=== PATIENT | female | born 2000 | race African-American/Black ===

== ENCOUNTER 2024-12-03 05:46 | Emergency (ER) | payer SELFPAY ==
[2024-12-03 05:47] VITALS: BMI 43.2
[2024-12-03 05:56] VITALS: BP 133/92; PULSE 87; RESP 19; TEMP 36.6; O2SAT 97
--- NOTE | 2024-12-03 06:27 | PD.EDEAR ---
ED Ear RME/HPI General Chief complaint: Ear Stated complaint: RIGHT EAR PLUGGED UP Time Seen by Provider: 12/03/24 06:19 Arrival date/time: 12/03/24 05:46 RME / HPI RME / HPI Narrative: DR. PERAZA MAIN ED EVALUATION: This section includes all my notes and documentations, including HPI, PE, and ED course.? Layo Peraza MD HPI: 24 year old female with no past medical history presents to the Emergency Department accompanied by with complaint of right ear pain. Associated symptoms include congestion for a week. No known allergies. No fevers or chills. No other complaints reported. ROS: All negative except as documented in HPI. Physical Exam: General:? Alert and oriented.? Severe congestion noted. Eyes:? Conjunctivae and lids clear. ENT:? Congested. Right TM is red and bulging with loss of landmarks. Pharynx normal. Neck:? Supple. Heart:? RRR. Lungs:? No respiratory distress.? Good air movement.? No rhonchi, wheezing, rales.? Skin:? Warm and dry.? Neuro:? Alert and oriented X 3.? At this point, diagnoses include otitis media and sinusitis. Treatment here included Augmentin. Recommend outpatient management. Based on my best medical judgment, made decision no further evaluation or treatment indicated at this time.? Patient understands and agrees to the discharge instructions customized and printed, see below. Discharge Instructions from Dr. Peraza printed for you: 1. Take Augmentin to kill the germs causing your infections. 2. Prednisone will help decrease inflammation and help the symptoms. 3. See a private doctor on 12/09/2024 if not completely better. 4. Seek immediate medical care with worsening or with any concerns. Layo Peraza MD Related Data Previous Rx's ?Medication ?Instructions ?Recorded amoxicillin 875 mg-potassium 1 tab PO BID #20 tabs 12/03/24 clavulanate 125 mg tablet prednisone 50 mg tablet 50 mg PO QDAY #3 tabs 12/03/24 Allergies Allergy/AdvReac Type Severity Reaction Status Date / Time No Known Allergies Allergy Verified 12/03/24 05:49 Course Quality Measures none Orders Category Date Time Status Amoxicillin/Pot Clav 875 [Augmentin 875] Med 12/03/24 06:41 Discontinued 1 tab PO X1 ONE Vital Signs Vital signs: Vital Signs Temperature 97.8 F 12/03/24 05:56 Pulse Rate 87 12/03/24 05:56 Respiratory Rate 19 12/03/24 05:56 Blood Pressure 133/92 H 12/03/24 05:56 Pulse Oximetry (%) 97 12/03/24 05:56 Oxygen Delivery Method Room Air 12/03/24 05:56 Ear MDM Narrative MDM Narrative:: IJodie am scribing for and in the presence of Dr. Peraza. Patient data External records reviewed:: None (no previous visits) Clinical information provided by:: patient and spouse Social determinants that could affect healthcare access:: none Patient has the following chronic illnesses:: Denies any PMHx, surgeries, daily medications, or known allergies. How is presenting disease/condition affected by chronic disease/condition?: no chronic disease Evaluation data The following diagnostics were reviewed and interpreted by me:: other (specify) (none) Lab and/or radiology exams considered but not ordered:: none Interpretation Summary: No diagnostics ordered. Medications / Prescriptions Medications or Prescriptions considered but not ordered:: none Medication administrations:: Medication Administration History Discontinued Medications Amoxicillin/Clavulanate Potassium (Amoxicillin/Pot Clav 875 Tablet) 1 tab PO X1 ONE Stop: 12/03/24 06:42 Last Admin: 12/03/24 06:44 Dose: 1 tab Documented By: DESIREE Scott Consultations Consultation(s) initiated? (list below): No Diagnosis Ear Differential Diagnosis: otitis externa, otitis media, foreign body in ear, ruptured TM, cerumen impaction and other (Sinusitis, URI) Most likely diagnosis given after review of the tests above:: Otitis media and sinusitis. Admission Indicated Admission indicated?: not indicated Explain why admission is indicated or not indicated:: With no serious condition, there was no indication for admission. Admission Request Was there a request for admission?: No Disposition Plan Disposition Plan: Discharge Discharge Attestation Discharge Attestation: The patient and all family members were given an opportunity to ask questions and understood the discharge instructions. Discharge instructions specifically effects, indications for sooner follow up or return to the emergency department, and the expected course of current diagnosis. Patient condition: Stable Discharge Plan Plan Patient Disposition: HOME (Self Care) Prescriptions/Referrals Prescriptions/Med Rec: New prednisone 50 mg tablet 50 mg PO QDAY Qty: 3 0RF amoxicillin-pot clavulanate 875-125 mg tablet 1 tab PO BID Qty: 20 0RF Problem List Clinical Impression: Otitis media, Sinusitis Patient/Caregiver Discharge Instructions Discharge Activity: activity as tolerated Education Materials: ED Otitis Media Antibiotic ..., ED Sinusitis (Antibiotic Treatment) Additional Instructions: Discharge Instructions from Dr. Peraza printed for you: 1. Take Augmentin to kill the germs causing your infections. 2. Prednisone will help decrease inflammation and help the symptoms. 3. See a private doctor on 12/09/2024 if not completely better. 4. Seek immediate medical care with worsening or with any concerns. Print Language: Setswana Stand Alone Forms: Norma Award Info., Patient Portal Info Letter
[2024-12-03] MEDS: AMOXICILLIN/POT CLAV 875 TABLET 1 TAB PO (06:44)
== END 2024-12-03 06:47 | disposition home or self-care (01) ==
LOC: SERX 06:51
PROVIDERS: Emergency Provider Emergency Medicine
DX: H66.91 Otitis media, unspecified, right ear (principal); J32.9 Chronic sinusitis, unspecified
CPT/HCPCS: 99282; A9270

== ENCOUNTER 2025-03-16 23:11 | Emergency (ER) | payer MEDICAID, SELFPAY ==
[2025-03-16] VITALS (15 sets, daily range): BP systolic 130–147; BP diastolic 69–94; PULSE 81–107; RESP 18–99; TEMP 36.8–37; O2SAT 96–100; BMI 47.6; BMI 47.5
--- NOTE | 2025-03-16 21:35 | XR_ITS ---
Examination: Complete OB ultrasound greater than 14 weeks Date and time of exam: March 16, 2025, 2143 hours INDICATIONS: Patient fell this afternoon with injury to the pelvis Findings: Viable intrauterine single fetus with single amniotic sac presentation cephalic Cardiac motion 140 bpm Placenta posterior grade 2 Umbilical cord insertion 3 vessels seen Amniotic fluid index adequate spine maternal left Cervix 4.2 cm Right ovary obscured by bowel gas Left ovary 3.1 cm arterial flow Composite estimated gestational age based on BPD, head circumference, abdominal circumference, femur length is 21 weeks 0 days Estimated weight 423 g. Survey of intracranial anatomy, spinal anatomy, abdominal anatomy, four-chamber heart performed with no abnormalities identified. Impression: Viable intrauterine gestation in cephalic presentation Placenta posterior grade 2 no abruption.
[2025-03-16] MEDS: ACETAMINOPHEN 500 MG TABLET 1000 MG PO (21:44)
--- NOTE | 2025-03-16 23:18 | PC.NURSE ---
[address] Rahman of patients US results, patient o be cleared in ED 2301 report given to concrete buster operator Jason [id number] patient transferred via wheel chair by PATRICIA Dewey to ER in stable condition, early labor education given.
--- NOTE | 2025-03-16 23:53 | XR_ITS ---
Examination: Forearm, right, 2 views. Technique: Forearm, AP, lateral 2 views Date and time of exam: March 17, 2025, 0023 hours INDICATIONS: Patient fell down stairs 8 hours ago with injury of the forearm, forearm pain FINDINGS: No fracture or dislocation. No elbow effusion No foreign body IMPRESSION: No fracture or dislocation
--- NOTE | 2025-03-17 00:03 | PD.EDUPEX ---
Upper Extremity Injury RME/HPI General Chief Complaint: Extremity Injury, Upper Stated Complaint: LABOR EVALUATION Time Seen by Provider: 03/16/25 23:53 Arrival date/time: 03/16/25 23:11 25F with no significant PMH presents to ED with RUE pain after falling down some steps. Patient denies ab pain or falling on stomach, but was cleared by OB already as patient is . Patient denies hitting head/neck and LOC. Limitations: no limitations Related Data Home Medications ?Medication ?Instructions ?Recorded ?Confirmed vit no.95-ferrous tab PO 03/16/25 fumarate 28 mg-folic acid 800 mcg tablet () Previous Rx's ?Medication ?Instructions ?Recorded amoxicillin 875 mg-potassium 1 tab PO BID #20 tabs 12/03/24 clavulanate 125 mg tablet prednisone 50 mg tablet 50 mg PO QDAY #3 tabs 12/03/24 Allergies Allergy/AdvReac Type Severity Reaction Status Date / Time No Known Allergies Allergy Verified 03/16/25 23:15 Review of Systems Review of Systems Systems Reviewed: All systems reviewed, normal except as documented Musculoskeletal Musculoskeletal: Reports as per HPI and Reports arthralgias Past Medical History Surgical History SURGICAL: Negative Section Social History SMOKING STATUS: Never smoker ED Exam General Limitations: Present no limitations General appearance: Present alert and in no apparent distress Head Head exam: Present atraumatic Neck Neck exam: Present normal inspection, full ROM and trachea midline Chest Chest inspection: Present normal inspection and symmetric chest wall rise Extremities Exam Extremities exam: Present full ROM Expanded Upper Extremity Exam Forearm/Wrist exam: Present full ROM (R) and tenderness Neurological Exam Neurological exam: Present alert and oriented X3 Psychiatric Psychiatric exam: Present normal affect and normal mood Skin Skin exam: Present warm, dry, intact and normal color Course Quality Measures none Orders Category Date Time Status Place in Observation Status Routine Admission 03/16/25 21:09 Active heart tone auscultation Q4H Care 03/16/25 21:09 Active Non-Stress Test Now Care 03/16/25 21:09 Active Sterile Vaginal Exam PRN Care 03/16/25 21:15 Ordered sling [Splint / Immobilizer] STAT Care 03/17/25 00:53 Active US OB >= 14 weeks Fetus Stat Exams 03/16/25 21:35 Completed XR forearm RT 2V Stat Exams 03/16/25 23:53 Taken ABO/RH Type Stat Lab 03/16/25 22:13 Completed Acetaminophen Tab [Tylenol ES Tab] Med 03/16/25 21:38 Discontinued 1,000 mg PO X1 ONE Vital Signs Vital signs: Vital Signs Pulse Rate 107 H 03/16/25 20:56 Blood Pressure 147/94 H 03/16/25 20:56 Pulse Oximetry (%) 99 03/16/25 20:56 O2 at 99% on RA and WNLs Extremity Injury MDM Narrative MDM Narrative:: 25F with no significant PMH presents to ED with RUE pain after falling down some steps. Patient denies ab pain or falling on stomach, but was cleared by OB already as patient is . Patient denies hitting head/neck and LOC. Physical exam reveals R forearm tenderness. ROM of wrist, elbow, and shoulder intact. No joint tenderness. Gait normal. Speech normal. Normal WOB. Patient is afebrile, calm, and alert. Wet XR read no fx pending official report. Given sling and alcohol and drug counselor. Patient data External records reviewed:: [facility] previous records Clinical information provided by:: patient Social determinants that could affect healthcare access:: none Patient has the following chronic illnesses:: none How is presenting disease/condition affected by chronic disease/condition?: no chronic disease Evaluation data The following diagnostics were reviewed and interpreted by me:: radiology exam(s) Lab and/or radiology exams considered but not ordered:: ordered Interpretation Summary: above Medications / Prescriptions Medications or Prescriptions considered but not ordered:: ordered Medication administrations:: Medication Administration History Discontinued Medications Acetaminophen (Acetaminophen 500 Mg Tablet) 1,000 mg PO X1 ONE Stop: 03/16/25 21:39 Last Admin: 03/16/25 21:44 Dose: 1,000 mg Documented By: KAYLA above Consultations Consultation(s) initiated? (list below): No Diagnosis Upper Extremity Injury Differential Diagnosis: sprain and strain of wrist, fracture of wrist, finger sprain, dislocation of finger, Colles' fracture, fracture of hand and other (arm contusion) Most likely diagnosis given after review of the tests above:: arm contusion Admission Indicated Admission indicated?: not indicated Admission Request Was there a request for admission?: No Disposition Plan Disposition Plan: Discharge Discharge Attestation Discharge Attestation: The patient and all family members were given an opportunity to ask questions and understood the discharge instructions. Discharge instructions specifically effects, indications for sooner follow up or return to the emergency department, and the expected course of current diagnosis. Patient condition: Stable Discharge Plan Plan Patient Disposition: HOME (Self Care) Discharge Disposition comment: Stable Patient condition on transfer: Stable Prescriptions/Referrals Prescriptions/Med Rec: No Action prednisone 50 mg tablet 50 mg PO QDAY Qty: 3 0RF amoxicillin-pot clavulanate 875-125 mg tablet 1 tab PO BID Qty: 20 0RF PNV no.95-ferrous fumarate-FA [] 28 mg iron- 800 mcg tablet PO Patient Comments: TAKE 1 TABLET BY MOUTH ONCE DAILY Referrals: No Primary/Family,Physician [Primary Care Provider] Problem List Clinical Impression: Arm contusion Patient/Caregiver Discharge Instructions Education Materials: ED Contusion, Upper Extremity Additional Instructions: Please follow-up with PCP within 24-48 hours and return immediately if symptoms worsen. If problem persists, recommend outpatient PT and/or MRI follow-up. In the meantime, rest, use ice/heat, and/or compression. Print Language: Nepalese Stand Alone Forms: Patient Portal Info Letter YAO/ROBERT Supervising Physician YAO/ROBERT Supervising Physician: Dr. Bustamante
== END 2025-03-17 01:26 | disposition home or self-care (01) ==
LOC: SERX 03-17 00:10
PROVIDERS: Emergency Provider Emergency Medicine
DX: O9A.212 Injury, poisoning and certain other consequences of external causes complicating pregnancy, second trimester (principal); Z3A.14 14 weeks gestation of pregnancy; S50.11XA Contusion of right forearm, initial encounter; W10.9XXA Fall (on) (from) unspecified stairs and steps, initial encounter
CPT/HCPCS: 36415; 73090; 76805; 86900; 86901; 99283; A9270